=== PATIENT | female | born 1985 | race Caucasian/White ===

== ENCOUNTER 2024-08-27 17:04 | Observation (INO) | payer OTHER, SELFPAY ==
[2024-08-27] VITALS (10 sets, daily range): BP systolic 154–192; BP diastolic 89–109; PULSE 70–83; RESP 14–20; O2SAT 98–100
--- NOTE | ~2024-08-27 | CT_ITS ---
CT lumbar spine wo con Ordering provider: Marti Foster PA-C History: 38 years Female with . back pain, right-sided paresthesias . Comparison: None. Technique: CT lumbar spine without contrast. Automated exposure control and iterative reconstruction technique were employed. The dose-length product was 867.25 mGy-cm. FINDINGS: VERTEBRAE: Normal height and alignment. No subluxation or visible acute fracture. DISC SPACES: Well maintained. Bulge at the level of L4-L5. T12-L1: No stenosis. L1-L2: No stenosis. L2-L3: No stenosis. L3-L4: No stenosis. L4-L5: No stenosis. L5-S1: No stenosis. PARASPINOUS SOFT TISSUES: Normal aorta. IMPRESSION: No acute osseous abnormality. Reviewed, dictated and finalized at location A.
--- NOTE | ~2024-08-27 | CT_ITS ---
CT cervical spine wo con Ordering provider: Marti Foster PA-C History: . neck pain, right sided paresthesias . Comparison: None. Technique: CT of the cervical spine was performed without contrast. Sagittal and coronal reformatted images were also obtained and reviewed. Automated exposure control and iterative reconstruction nicholas hnique were employed. The dose-length product was 362.77 mGy-cm. FINDINGS: VERTEBRAE: No subluxation or acute fracture. The occipital condyles are intact. Degenerative changes of the spine. DISC SPACES: Narrowing of the disc C6-C7. Uncovertebral joint osteoarthritic changes at the same leve l. Bilateral narrowing of the foramina at the level of C4-C5, C5-C6 and C6-C7. PARASPINOUS SOFT TISSUES: Normal. IMPRESSION: No acute osseous abnormality cervical spine. Narrowing of the foramina at the level of C4-C5, C5-C6 and C6-C7. Clinical correlation advised and if clinically warranted MRI is advised. Reviewed, dictated and finalized at location A. IMPRESSION: No acute osseous abnormality cervical spine. Narrowing of the foramina at the level of C4-C5, C5-C6 and C6-C7. Clinical darryl elation advised and if clinically warranted MRI is advised.
--- NOTE | ~2024-08-27 | CT_ITS ---
CT ANGIOGRAM NECK AND HEAD History: Right-sided paresthesia. Technique: Serial spiral axial images through the head and neck were obtained during arterial phase I V injection of 100 cc of Omnipaque 350. 3-D postprocessing and MIP images were then reconstructed on the remote workstation. Dose reduction technique was used on this scan by utilizing automated exposur e control and iterative reconstruction technique. The dose-length product (DLP) was 963.95 mGy-cm. CTA neck findings: Bilateral vertebral arteries are patent. Bilateral common carotid, internal carot id, and external carotid arteries are patent. No large vessel occlusion or stenosis. No aneurysm. The proximal right internal carotid artery demonstrates 0% stenosis relative to the normal distal artery lumen diameter. The proximal left internal carotid artery demonstrates 0% stenosis relative to the n ormal distal artery lumen diameter. CTA head findings: Distal vertebral arteries, basilar artery, and posterior cerebral arteries are pat ent. Distal internal carotid arteries, middle cerebral arteries, and anterior cerebral arteries are p atent. No large vessel occlusion or stenosis. No aneurysm. Impression: Unremarkable exam. Reviewed, dictated and finalized at location M. Impression: Unremarkable exam.
--- NOTE | ~2024-08-27 | XR_ITS ---
XR chest 1V portable Ordering provider: Marti Foster PA-C History: 38 years Female with . hypertension . Comparison: January 23, 2005 FINDINGS: MEDIASTINUM: The cardiac silhouette is not enlarged. LUNGS: No infiltrates, effusions or pneumothorax. OTHER: No free air under the diaphragm. IMPRESSION: No acute cardiopulmonary pathology. Reviewed, dictated and finalized at location A.
--- NOTE | ~2024-08-27 | CT_ITS ---
CT brain wo con Ordering provider: Marti Foster PA-C History: 38 years Female with . Right-sided paresthesias . Comparison: None. Technique: CT of the head without contrast. Radiation reduction technique utilized.The dose-length pr oduct was 605.33 mGy-cm. FINDINGS: BRAIN PARENCHYMA AND CSF SPACES: No midline shift, mass effect or hemorrhage. The brain parenchyma a nd CSF spaces are otherwise normal. VISUALIZED PARANASAL SINUSES: Well aerated. MASTOIDS: Well aerated. BONES: The bones appear intact. SOFT TISSUES: Visualized nasopharynx is normal. Superficial soft tissues are normal. IMPRESSION: No acute intracranial findings. Reviewed, dictated and finalized at location A.
--- NOTE | ~2024-08-27 | MR_ITS ---
EXAMINATION: MR brain/brain stem wo/w con DATE: 08/28/2024 12:31 INDICATION: Right-sided numbness. Stroke symptoms. TECHNIQUE: Magnetic resonance imaging (MRI) of the brain and brainstem was performed without and with 17 mL ProHance intravenous contrast. Sequences included sagittal and axial T1-weighted SE, axial dif fusion-weighted FS SE, axial 3D SWAN, axial T2-weighted FLAIR, and axial T2-weighted FSE. Postcontras t axial and coronal T1-weighted SE was obtained. Apparent diffusion coefficient (ADC) maps were creat ed. COMPARISON: Head CT and cerebral CT angiogram dated 08/27/2024 FINDINGS: Small region of restricted diffusion with associated increased T2 signal consistent with acute infarc t in the left thalamus. No intracranial hemorrhage or abnormal intracranial mass lesion. There are no intraparenchymal signal abnormalities seen on the other pulse sequences. The ventricles are symmetri c and normal in size. There are no abnormal extra-axial fluid collections. Flow voids are seen in the cerebral arteries on the T2-weighted sequences consistent with their expected patency. Mild mucoperi osteal thickening the bilateral ethmoid sinuses. Visualized orbits and soft tissues are unremarkable. There are no areas of abnormal enhancement on the post contrast images. IMPRESSION: 1. Small acute infarct in the left thalamus. Otherwise unremarkable brain MRI. Reviewed, dictated and finalized at location A.
--- NOTE | 2024-08-27 17:28 | ECG_ITS ---
Test Date: 2024-08-27 19:55:22 Measurements Intervals [place] Rate: 71 P: 45 [place]: 172 QRS: 53 QRSD: 94 T: 35 QT: 404 QTc: 441 Interpretive Statements SINUS RHYTHM POSSIBLE LEFT ATRIAL ENLARGEMENT BORDERLINE ST ABNORMALITY- INF/LAT LEADS BASELINE WANDER- II, III, V1 BORDERLINE ECG No previous ECG available for comparison Electronically Signed On 08-28-2024 06:11:05 CDT by Harsha Swanson D.O.
--- NOTE | 2024-08-27 17:30 | ED_ITS ---
HPI - Neuro Symptoms/Deficit General Chief Complaint: Neuro Symptoms/Deficit <MINISTERIO Casas Last Filed: 08/28/24 01:36> Stated Complaint: rided sided tingling <MINISTERIO Casas Last Filed: 08/28/24 01:36> Time Seen by Provider: 08/27/24 17:11 <MINISTERIO Casas Last Filed: 08/28/24 01:36> Source: patient <MINISTERIO Casas Last Filed: 08/28/24 01:36> Mode of arrival: ambulatory <MINISTERIO Casas Last Filed: 08/28/24 01:36> Limitations: no limitations <MINISTERIO Casas Last Filed: 08/28/24 01:36> History of Present Illness HPI Narrative: This is a 38-year-old female that presents to the emergency department for right-sided paresthesias. Reports around 9:00 p.m. last night she started to note tingling in her right arm, leg, face. Reports this when on intermittently for couple of hours. She went to sleep. Since she woke up this morning knee paresthesias have been constant. Denies any other focal numbness or weakness. < MINISTERIO Casas Last Filed: 08/28/24 01:36> Related Data Home Medications: Home Medications ?Medication ?Instructions ?Recorded ?Confirmed ?Last Taken ?Type ibuprofen 600 mg tablet (IBU) 600 mg PO PRN pain 08/28/24 08/28/24 Unknown History <MINISTERIO Casas Last Filed: 08/28/24 01:36> Allergies/Adverse Reactions: Allergies Allergy/AdvReac Type Severity Reaction Status Date / Time prochlorperazine Allergy Severe Anaphylactic Verified 10/26/10 17:58 Shock <MINISTERIO Casas Last Filed: 08/28/24 01:36> Review of Systems 2 Review of Systems: CONSTITUTIONAL: Denies fever EYES: Denies visual changes CARDIOVASCULAR: Denies chest pain, or edema. RESPIRATORY: Denies dyspnea. SKIN: Denies rash MUSCULOSKELETAL: Reports back pain, and myalgia. NEUROLOGIC: Denies weakness. <Marti Foster PA-C - Last Filed: 08/28/24 01:36> All systems reviewed & are unremarkable except as noted in HPI and below < Marti Foster PA-C - Last Filed: 08/28/24 01:36> PMFSH Past Medical History Medical History: Medical History (Updated 08/28/24 @ 01:31 by Marti Foster PA-C) No active medical problems <Marti Foster PA-C - Last Filed: 08/28/24 01:36> Family History Family History: Family History (Updated 08/28/24 @ 04:12 by Una Cladwell RN) Father Hypertension Grandparent Diabetes mellitus Mother Restless leg syndrome <Marti Foster PA-C - Last Filed: 08/28/24 01:36> Social History Social History: Social History (Updated 08/27/24 @ 17:32 by Marti Foster PA-C) Smoking status: Never smoker Alcohol intake: current Drinks per week: 1 Substance use: never Do You Feel Safe in your Home?: Yes Lack of Transportation: No Lack of Food: Never True Current Housing: I Have Housing Concerned About Future Housing: No Difficulty Paying Gas/Electric Bills: No Difficulty Paying for Meds: No Currently Unemployed: YES Education: High School Diploma/GED Difficulty w/ Childcare or Family Care: No Spiritual care concerns: No <Marti Foster PA-C - Last Filed: 08/28/24 01:36> Exam 2 Narrative: GENERAL: Well-appearing, well-nourished, and in no acute distress. HEAD: Normocephalic, atraumatic. EYES: PERRLA and EOMI. ENT: Nares clear, no rhinorrhea or epistaxis. Mucous membranes moist. Oropharynx without tonsillar hypertrophy exudate or other lesions. Bilateral TMs pearly murray non-bulging NECK: Supple. No adenopathy or masses. CHEST: Clear to auscultation. No respiratory distress. No wheezes rales or rhonchi HEART: Regular rate and rhythm. No murmur heard. Normal peripheral pulses. EXTREMITIES: Normal range of motion. No edema. Strength equal in bilateral upper and lower extremities (5/5) SKIN: Warm, dry, no rash. NEURO: No focal deficits. Alert and oriented x3. Cranial nerves 2-12 grossly intact. Normal [id number] PSYCH: Normal mood and affect <Marti Foster PA-C - Last Filed: 08/28/24 01:36> Course Course Emergency Course: Patient updated on her workup and recommendation for admission <Marti Foster PA-C - Last Filed: 08/28/24 01:36> DENTAL OFFICE COORDINATOR/PA Physician Supervision This visit was performed by both a physician and an APC. I performed all aspects of the MDM as documented. <Jaswinder Ospina MD - Last Filed: 08/28/24 04:54> Consultations Consultation #1: Spoke with hospitalist about patient and workup who accepts admission < Marti Foster PA-C - Last Filed: 08/28/24 01:36> Date: 08/28/24 <Marti Foster PA-C - Last Filed: 08/28/24 01:36> Consultation #2: Spoke with Dr. García. Recommends CTA brain carotid, if that does not show any acute findings. Admission and MR brain <Marti Foster PA-C - Last Filed: 08/28/24 01:36> Date: 08/27/24 <Marti Foster PA-C - Last Filed: 08/28/24 01:36> Vital Signs Vital signs: Vital Signs Pulse Rate 81 08/27/24 17:19 Respiratory Rate 18 08/27/24 17:19 Blood Pressure 192/103 H 08/27/24 17:19 Pulse Oximetry 100 08/27/24 17:19 Oxygen Delivery Room Air 08/27/24 17:19 Temperature 36.6 C 08/28/24 02:51 Pulse Rate 86 08/28/24 04:18 Respiratory Rate 16 08/28/24 02:51 Blood Pressure 173/96 H 08/28/24 02:51 Pulse Oximetry 98 08/28/24 02:51 Oxygen Delivery Room Air 08/28/24 04:21 <MINISTERIO Casas Last Filed: 08/28/24 01:36> Vital Signs Pulse Rate 81 08/27/24 17:19 Respiratory Rate 18 08/27/24 17:19 Blood Pressure 192/103 H 08/27/24 17:19 Pulse Oximetry 100 08/27/24 17:19 Oxygen Delivery Room Air 08/27/24 17:19 Temperature 36.6 C 08/28/24 02:51 Pulse Rate 86 08/28/24 04:18 Respiratory Rate 16 08/28/24 02:51 Blood Pressure 173/96 H 08/28/24 02:51 Pulse Oximetry 98 08/28/24 02:51 Oxygen Delivery Room Air 08/28/24 04:21 <Jaswinder Ospina MD - Last Filed: 08/28/24 04:54> MDM - Neuro Symptoms/Deficit MDM Narrative Medical decision making narrative: Patient presents the emergency department for right-sided paresthesias. Ongoing since last night. She is not have any focal deficits noted on exam. Reporting tingling/paresthesias in the right arm, leg, right side of her face. Patient hypertensive upon arrival, does not have known history of hypertension. Blood pressure is elevated to the 190 systolic. Given a dose of labetalol with improvement. CBC without concerning findings. Metabolic panel with elevated blood glucose. Hemoglobin A1c would make her a prediabetic. Chest x-ray without acute cardiopulmonary abnormality. CT brain without acute findings. CT cervical spine shows no acute osseous abnormality. Some foraminal narrowing. CT lumbar spine without acute findings. Spoke with Dr. Garcaí. Recommends CTA brain carotid, if that does not show any acute findings. Admission and MR brain. Spoke with hospitalist about patient and workup who accepts admission < Marti Foster PA-C - Last Filed: 08/28/24 01:36> Differential Diagnosis Differential diagnosis: Likely subarachnoid hemorrhage, peripheral neuropathy, cerebrovascular accident, multiple sclerosis and other (Radiculopathy, hypertensive urgency) < Marti Foster PA-C - Last Filed: 08/28/24 01:36> Lab Data Attestation: I reviewed the patient's lab results. <Marti Foster PA-C - Last Filed: 08/28/24 01:36> Result diagrams: 08/27/24 17:38 08/27/24 17:38 <Marti Foster PA-C - Last Filed: 08/28/24 01:36> Labs: Lab Results 08/27/24 08/27/24 Range/Units 17:38 20:08 WBC 10.1 H (4.5-10.0) K/mm3 RBC 4.88 (4.2-5.4) M/mm3 Hgb 12.4 (12.0-15.0) g/dL Hct 40.0 (37.0-47.0) % MCV 82.0 (80-100) fl MCH 25.4 L (26-34) pg MCHC 31.0 L (32-36) g/dl RDW 14.6 H (11.5-14.5) % Plt Count 375 (150-375) k/mm3 MPV 9.1 (7.4-10.4) fl Immature Gran % (Auto) 1.2 H (0-0.5) % Neut % (Auto) 68.7 (45.5-73.1) % Lymph % (Auto) 19.5 (18.3-44.2) % Brown % (Auto) 4.8 (2.6-8.5) % Eos % (Auto) 4.6 H (0-4.4) % Baso % (Auto) 1.2 (0.2-1.2) % Lymph # (Auto) 1.98 (0.9-3.2) K/mm3 Brown # (Auto) 0.5 (0.1-0.6) K/mm3 Eos # (Auto) 0.5 H (0-0.3) K/mm3 Baso # (Auto) 0.1 (0.0-0.1) K/mm3 Abs Immat Gran (auto) 0.12 H (0.00-0.031) K/mm3 Absolute Neuts (auto) 7.0 H (1.3-6.7) K/mm3 Absolute Nucleated RBC 0.000 (0.0-0.012) K/mm3 Nucleated RBC % 0.0 (0.0-0.2) % PT 13.0 (11.1-14.7) Seconds INR 1.0 APTT 25.3 (22.3-36.8) Seconds Sodium 137 (137-145) mmol/L Potassium 3.5 (3.4-5.0) mmol/L Chloride 103 (98-107) mmol/L Carbon Dioxide 26 (22-30) mmol/L Anion Gap 8 (4-12) mmol/L BUN 5 L (7-17) mg/dL Creatinine 0.70 (0.7-1.0) mg/dL Estim Creat Clear Calc 97 ml/min Estimated GFR > 60 (59 - ) Glucose 175 H (65-110) mg/dL Hemoglobin A1c 6.3 H (<5.7) % Calcium 8.9 (8.4-10.2) mg/dL Magnesium 2.0 (1.6-2.3) mg/dL Total Bilirubin 0.4 (0.2-1.3) mg/dL AST 44 H (14-36) U/L ALT 28 (6-35) U/L Alkaline Phosphatase 68 (38-126) U/L Troponin I < 0.012 (0.000-0.034) ng/mL Total Protein 7.4 (6.3-8.2) g/dL Albumin 4.3 (3.5-5.1) g/dL Vitamin B12 265.0 (239-931) pg/mL Folate 9.7 (2.76->20) ng/mL POC Urine HCG, Qual Negative (Negative) <Marti Foster PA-C - Last Filed: 08/28/24 01:36> Lab Results 08/27/24 08/27/24 Range/Units 17:38 20:08 WBC 10.1 H (4.5-10.0) K/mm3 RBC 4.88 (4.2-5.4) M/mm3 Hgb 12.4 (12.0-15.0) g/dL Hct 40.0 (37.0-47.0) % MCV 82.0 (80-100) fl MCH 25.4 L (26-34) pg MCHC 31.0 L (32-36) g/dl RDW 14.6 H (11.5-14.5) % Plt Count 375 (150-375) k/mm3 MPV 9.1 (7.4-10.4) fl Immature Gran % (Auto) 1.2 H (0-0.5) % Neut % (Auto) 68.7 (45.5-73.1) % Lymph % (Auto) 19.5 (18.3-44.2) % Brown % (Auto) 4.8 (2.6-8.5) % Eos % (Auto) 4.6 H (0-4.4) % Baso % (Auto) 1.2 (0.2-1.2) % Lymph # (Auto) 1.98 (0.9-3.2) K/mm3 Brown # (Auto) 0.5 (0.1-0.6) K/mm3 Eos # (Auto) 0.5 H (0-0.3) K/mm3 Baso # (Auto) 0.1 (0.0-0.1) K/mm3 Abs Immat Gran (auto) 0.12 H (0.00-0.031) K/mm3 Absolute Neuts (auto) 7.0 H (1.3-6.7) K/mm3 Absolute Nucleated RBC 0.000 (0.0-0.012) K/mm3 Nucleated RBC % 0.0 (0.0-0.2) % PT 13.0 (11.1-14.7) Seconds INR 1.0 APTT 25.3 (22.3-36.8) Seconds Sodium 137 (137-145) mmol/L Potassium 3.5 (3.4-5.0) mmol/L Chloride 103 (98-107) mmol/L Carbon Dioxide 26 (22-30) mmol/L Anion Gap 8 (4-12) mmol/L BUN 5 L (7-17) mg/dL Creatinine 0.70 (0.7-1.0) mg/dL Estim Creat Clear Calc 97 ml/min Estimated GFR > 60 (59 - ) Glucose 175 H (65-110) mg/dL Hemoglobin A1c 6.3 H (<5.7) % Calcium 8.9 (8.4-10.2) mg/dL Magnesium 2.0 (1.6-2.3) mg/dL Total Bilirubin 0.4 (0.2-1.3) mg/dL AST 44 H (14-36) U/L ALT 28 (6-35) U/L Alkaline Phosphatase 68 (38-126) U/L Troponin I < 0.012 (0.000-0.034) ng/mL Total Protein 7.4 (6.3-8.2) g/dL Albumin 4.3 (3.5-5.1) g/dL Vitamin B12 265.0 (239-931) pg/mL Folate 9.7 (2.76->20) ng/mL POC Urine HCG, Qual Negative (Negative) <Jaswinder Ospina MD - Last Filed: 08/28/24 04:54> Imaging Data Radiologist's impression: ITS Impressions Chest X-Ray 08/27/24 18:20 IMPRESSION: No acute cardiopulmonary pathology. Head CT 08/27/24 20:22 IMPRESSION: No acute intracranial findings. Cervical Spine CT 08/27/24 22:40 IMPRESSION: No acute osseous abnormality cervical spine. Narrowing of the foramina at the level of C4-C5, C5-C6 and C6-C7. Clinical correlation advised and if clinically warranted MRI is advised. Lumbar Spine CT 08/27/24 22:54 IMPRESSION: No acute osseous abnormality. CTA brain and carotid: No acute finding. Unremarkable arteries. No large vessel occlusion <Marti Foster PA-C - Last Filed: 08/28/24 01:36> ECG Data EKG #1: ECG completion date: 08/27/24 <Marti Foster PA-C - Last Filed: 08/28/24 01:36> EKG Interpretation: normal rate, sinus rhythm, no ST changes and normal QT <MINISTERIO Casas Last Filed: 08/28/24 01:36> Critical Care Time Critical Care Time Critical Care Time: Yes <Marti Foster PA-C - Last Filed: 08/28/24 01:36> Total Critical Care Time: 35 <MINISTERIO Casas Last Filed: 08/28/24 01:36> Discharge Plan Discharge Clinical Impression: Hypertensive urgency, Paresthesia <MINISTERIO Casas Last Filed: 08/28/24 01:36> Patient Disposition: Still a Patient <MINISTERIO Casas Last Filed: 08/28/24 01:36> Condition: Serious <MINISTERIO Casas Last Filed: 08/28/24 01:36>
[2024-08-27 17:45] LABS: Basophils Absolute Auto 0.1 K/mm3 (0.0-0.1); Basophils Percent Auto 1.2 % (0.2-1.2); Eosinophils Absolute Auto 0.5 K/mm3 (0-0.3); Eosinophils Percent Auto 4.6 % (0-4.4); Hemoglobin 12.4 g/dL (12.0-15.0); Immature Granulocyte Absolute 0.12 K/mm3 (0.00-0.031); Immature Granulocyte Percent A 1.2 % (0-0.5); Lymphocytes Absolute Auto 1.98 K/mm3 (0.9-3.2); Lymphocytes Percent Auto 19.5 % (18.3-44.2); Mean Corpuscular Hemoglobin 25.4 pg (26-34); Mean Platelet Volume 9.1 fl (7.4-10.4); Monocytes Absolute Auto 0.5 K/mm3 (0.1-0.6); Monocytes Percent Auto 4.8 % (2.6-8.5); Neutrophils Percent Auto 68.7 % (45.5-73.1); Platelet Count Result 375 k/mm3 (150-375); Red Blood Count 4.88 M/mm3 (4.2-5.4); Red Cell Distribution Width 14.6 % (11.5-14.5); White Blood Count 10.1 K/mm3 (4.5-10.0)
[2024-08-27 18:00] LABS: Partial Thromboplastin Time 25.3 Seconds (22.3-36.8)
[2024-08-27 18:22] LABS: Alanine Aminotransferase 28 U/L (6-35); Albumin Level 4.3 g/dL (3.5-5.1); Alkaline Phosphatase 68 U/L (38-126); Anion Gap 8 mmol/L (4-12); Aspartate Amino Transferase 44 U/L (14-36); Bilirubin,Total 0.4 mg/dL (0.2-1.3); Blood Urea Nitrogen 5 mg/dL (7-17); Calcium 8.9 mg/dL (8.4-10.2); Carbon Dioxide 26 mmol/L (22-30); Chloride 103 mmol/L (98-107); Estimated CRCL calculation 97 ml/min; Estimated Glomerular Filt Rate > 60; Glucose 175 mg/dL (65-110); Potassium 3.5 mmol/L (3.4-5.0); Sodium 137 mmol/L (137-145); Total Protein 7.4 g/dL (6.3-8.2); Troponin I < 0.012 ng/mL (0.000-0.034)
[2024-08-27] MEDS: LABETALOL HCL INJ 100 MG/20 ML VIAL 10 MG IV PUSH (18:36)
--- NOTE | 2024-08-27 18:49 | PC.NURSE ---
called lab to add on Hgb A1C.
[2024-08-27 20:10] LABS: BEDSIDEPREGUCG Negative (Negative)
--- NOTE | 2024-08-27 21:34 | PC.NURSE ---
Patient reporting that all numbness has subsided-still alittle tingling in toes
[2024-08-27 22:09] LABS: Hemoglobin A1C 6.3 % (<5.7)
[2024-08-27] MEDS: ACETAMINOPHEN 500 MG TABLET 1000 MG PO (23:22)
[2024-08-28] VITALS (12 sets, daily range): BP systolic 148–173; BP diastolic 89–108; PULSE 73–94; RESP 15–22; TEMP 36.6–37; O2SAT 97–100; BMI 31.4
--- NOTE | 2024-08-28 | ECHO_ITS ---
Patient Info Name: Rosalia Rondon Age: 38 years : 1985 Gender: Female Ht: 64 in Wt: 181 lbs BSA: 1.95 m2 HR: 75 bpm BP: 173 / 96 mmHg Technical Quality: Good Exam Date: 08/28/2024 10:16 AM Patient Status: I Admit Date: 08/28/2024 Exam Type: CA echo doppler w bubble study Complete two-dimensional, color flow and Doppler transthoracic echocardiogram is performed with agitated saline. Staff Referring Physician: [facility] Insurance Representative: Jen Caldewll Attending Provider: Blair Sims MD Contrast/Agitated Saline Contrast/Ag. Saline: Agitated Saline Amount: 12.00 ml Existing IV Access: Yes IV Access Condition: patent with no signs of infiltration Summary 1. Left ventricular chamber dimension is normal. 2. Left ventricular systolic function is normal, estimated at 65-70. 3. There is mild concentric increased left ventricular wall thickness. 4. The left ventricular diastolic function is grade I diastolic dysfunction. 5. E/e' 8 is minimally elevated. 6. There is trace tricuspid valve regurgitation. 7. No pulmonary hypertension, estimated pulmonary arterial systolic pressure is 21 mmHg. Left Ventricle E/e' 8 is minimally elevated. Left ventricular chamber dimension is normal. Left ventricular systolic function is normal, estimated at 65-70. There is mild concentric increased left ventricular wall thickness. The left ventricular diastolic function is grade I diastolic dysfunction. Right Ventricle Right ventricular chamber dimension is normal. Right ventricular systolic function is normal and with normal TAPSE 2.5 cm. Left Atria Left atrial chamber dimension is normal. Right Atria Right atrial chamber dimension is normal. Atrial Septum Intact interatrial septum visualized by 2D and agitated saline imaging. Agitated saline injection with and without valsalva maneuver opacified right side cardiac chambers without shunt to left side cardiac chambers. Aortic Valve The aortic valve is trileaflet. There is no aortic valve stenosis. There is no aortic valve regurgitation. Pulmonic Valve There is no pulmonic regurgitation. Mitral Valve There is no mitral valve stenosis. There is no mitral valve regurgitation. Tricuspid Valve There is trace tricuspid valve regurgitation. No pulmonary hypertension, estimated pulmonary arterial systolic pressure is 21 mmHg. Pericardium/Pleural There is no pericardial effusion. Inferior Vena Cava Normal inferior vena cava with >50% collapse upon inspiration consistent with normal right atrial pressure, 5 mmHg. Aorta The aortic root size at the sinus of Valsalva is normal. Left Ventricular Outflow Tract Name Value Normal LVOT 2D LVOT Diameter 1.9 cm LVOT Doppler LVOT Peak Velocity 98 cm/s LVOT Peak Gradient 4 mmHg LVOT Mean Gradient 3 mmHg LVOT VTI 23 cm LVOT VTI/AV VTI Ratio 0.8 LVOT Stroke Volume 66 ml LVOT CO 13.8 l/min LVOT CI 7.1 l/min/m2 Pulmonic Valve Name Value Normal PV Doppler PV Peak Velocity 101 cm/s PV Peak Gradient 4 mmHg Mitral Valve Name Value Normal MV Diastolic Function MV E Peak Velocity 67 cm/s MV A Peak Velocity 79 cm/s MV E/A 0.8 MV Decel Time (PW) 227 ms MV Annular TDI MV E/e' (Septal) 10.3 MV E/e' (Lateral) 7.9 MV E/e' (Average) 9.1 Tricuspid Valve Name Value Normal TV Regurgitation Doppler TR Peak Velocity 198 cm/s TR Peak Gradient 16 mmHg Estimated PAP/RSVP RA Pressure 5 mmHg <=5 PA Systolic Pressure 21 mmHg <36 RV Systolic Pressure 21 mmHg <36 TV Annular TDI TV Lateral Daly s' Velocity 15.5 cm/s >=9.5 Aorta Name Value Normal Ascending Aorta Ao Root Diameter (MM) 3.2 cm Ao Root Diam Index (MM) 1.7 cm/m2 Aortic Valve Name Value Normal AV Doppler AV Peak Velocity 154 cm/s AV Peak Gradient 10 mmHg AV Mean Gradient 5 mmHg AV VTI 30 cm AV Area (Cont Eq VTI) 2.2 cm2 >=3.0 AV Area (Cont Eq Magdaleno) 1.9 cm2 AV DI (Magdaleno) 0.64 AV Regurgitation 2D LVOT Area 2.9 cm2 Ventricles Name Value Normal LV Dimensions 2D/MM IVS Diastolic Thickness (2D) 1.2 cm 0.6-1.0 LVID Diastole (2D) 4.7 cm 3.8-5.2 LVIW Diastolic Thickness (2D) 1.2 cm 0.6-0.9 LVID Systole (2D) 3.0 cm 2.2-3.5 LVOT Diameter 1.9 cm LV Mass (2D Cubed) 213.23 g 67.00-162.00 LV Mass Index (2D Cubed) 109 g/m2 43-95 Relative Wall Thickness (2D) 0.50 <=0.42 LV Fractional Shortening/Ejection Fraction 2D/MM LV Fractional Shortening (2D) 36 % 27-45 LV EF (2D Teichholz) 65 % LV Diastolic Volume (4C MOD) 111 ml LV EF (4C MOD) 72 % LV Diastolic Volume (2C MOD) 84 ml LV EF (2C MOD) 59 % LV Diastolic Volume (BP MOD) 99 ml 46-106 LV Diastolic Volume Index (BP MOD) 51 ml/m2 29-61 LV Systolic Volume (BP MOD) 34 ml 14-42 LV Systolic Volume Index (BP MOD) 17 ml/m2 8-24 LV EF (BP MOD) 66 % 54-74 LV Diastolic Length (4C) 8.2 cm LV Systolic Length (4C) 6.6 cm LV Stroke Volume (4C MOD) 80 ml RV Dimensions 2D/MM RVID Diastole (2D) 3.2 cm 2.1-3.5 Atria Name Value Normal LA Dimensions LA Dimension (MM) 0.0 cm 2.7-3.8 LA Volume (4C A-L) 38 ml LA Volume (BP A-L) 41 ml RA Dimensions RA Systolic Major [place] Length (4C) 4.3 cm 2.2-2.8 RA Area (4C) 11.0 cm2 <=18.0 Report Signatures
[2024-08-28] MEDS: hydrALAZINE HCL 20 MG/ML VIAL 10 MG IV PUSH (01:44)
[2024-08-28 01:45] LABS: Folic Acid 9.7 ng/mL (2.76->20)
--- NOTE | 2024-08-28 02:25 | ADMGEN ---
This patient, Rosalia Rondon, was admitted to Medical Room 345-. Patient/family oriented to hospital policies and general routines including ID bracelet, bed and alarms, visiting hours, pain management, procedures, bathroom and other care routines, personal items, smoking policy, room service/diet, and visiting hours. Information on how to activate the Rapid Response Team has been discussed. Patient/Family are encouraged to report perceived risks to care and to ask questions if they do not understand what they are told or what they should do.
[2024-08-28] MEDS: CYANOCOBALAMIN INJ 1,000 MCG/ML VIAL 1000 MCG IM (03:30)
[2024-08-28 06:22] LABS: Basophils Absolute Auto 0.1 K/mm3 (0.0-0.1); Basophils Percent Auto 0.9 % (0.2-1.2); Eosinophils Absolute Auto 0.5 K/mm3 (0-0.3); Eosinophils Percent Auto 4.2 % (0-4.4); Hematocrit 37.7 % (37.0-47.0); Hemoglobin 11.8 g/dL (12.0-15.0); Immature Granulocyte Absolute 0.11 K/mm3 (0.00-0.031); Immature Granulocyte Percent A 0.9 % (0-0.5); Lymphocytes Absolute Auto 2.99 K/mm3 (0.9-3.2); Lymphocytes Percent Auto 24.8 % (18.3-44.2); Mean Corpuscular HGB Conc 31.3 g/dl (32-36); Mean Corpuscular Hemoglobin 25.8 pg (26-34); Mean Corpuscular Volume 82.5 fl (80-100); Mean Platelet Volume 9.7 fl (7.4-10.4); Monocytes Absolute Auto 0.7 K/mm3 (0.1-0.6); Monocytes Percent Auto 5.5 % (2.6-8.5); Neutrophils Absolute Auto 7.7 K/mm3 (1.3-6.7); Neutrophils Percent Auto 63.7 % (45.5-73.1); Platelet Count Result 384 k/mm3 (150-375); Red Blood Count 4.57 M/mm3 (4.2-5.4); Red Cell Distribution Width 14.6 % (11.5-14.5); White Blood Count 12.1 K/mm3 (4.5-10.0)
[2024-08-28 06:38] LABS: Alanine Aminotransferase 26 U/L (6-35); Alkaline Phosphatase 71 U/L (38-126); Anion Gap 9 mmol/L (4-12); Aspartate Amino Transferase 38 U/L (14-36); Bilirubin,Total 0.3 mg/dL (0.2-1.3); Blood Urea Nitrogen 7 mg/dL (7-17); Calcium 8.8 mg/dL (8.4-10.2); Carbon Dioxide 26 mmol/L (22-30); Chloride 103 mmol/L (98-107); Estimated CRCL calculation 90 ml/min; Estimated Glomerular Filt Rate > 60; Glucose 135 mg/dL (65-110); Magnesium 1.9 mg/dL (1.6-2.3); Potassium 3.3 mmol/L (3.4-5.0); Sodium 138 mmol/L (137-145); Total Protein 6.8 g/dL (6.3-8.2)
[2024-08-28 07:11] LABS: Cholesterol 195 mg/dL (0-200); HDL Direct 26 mg/dL; Triglycerides 337 mg/dL (<150)
[2024-08-28 07:21] LABS: LDL Cholesterol Direct 107 mg/dL
--- NOTE | 2024-08-28 08:07 | P.HP_ITS ---
H&P: HPI History of Present Illness Date/Time: 08/28/24 08:07 Chief Complaint: Numbness/tingling Narrative: Rosalia Rondon is a 38-year-old female who presents to the hospital with right- sided paresthesias for the past several weeks, worse over the past 4 days. Patient endorses intermittent episodes of transient right leg, arm, and face numbness/tingling for the past approximately 2 months stating that these e pisodes usually last around 1-5 seconds and go away on their own.She reports that on Saturday night she started experiencing episodes similar to before although this episode lasted for several hours and did not involve her face. She also reports that on Kamara, numbness/tingling numbness and on throughout the day and also involved her face. Denies any dizziness, nausea/vomiting, chest pain, shortness of breath, abdominal pain, urinary/bowel changes. Denies any recent illnesses, hospitalizations or recent travel. Denies smoking history but does drink alcohol. Family history of hypertension and diabetes, but does not take any medications at this time. In ED: 81 HR, 18RR, 192/103, 100% RA WBC 10.1, hemoglobin 12.4, hematocrit 40. Sodium 137, potassium 3.5, BUN 5, creatinine 0.7. Glucose 125, LFTs within normal limits Troponin negative Chest x-ray: No acute cardiopulmonary pathology Head CT: No acute intracranial findings Cervical spine CT: No acute osseous abnormality, narrowing of the foramina at level C4-C5, C5-C6, and C6-C7 Lumbar spine CT: No acute osseous abnormality CT brain and carotid: No acute finding, unremarkable arteries, no large vessel occlusion Review of Systems Review of Systems: All systems reviewed & are unremarkable except as noted in HPI and below [facility] Past Medical History Medical History (Updated 08/28/24 @ 13:05 by Don Brooks PA-C) No active medical problems Family History Family History (Updated 08/28/24 @ 04:12 by Una Caldwell RN) Father Hypertension Grandparent Diabetes mellitus Mother Restless leg syndrome Social History Social History (Updated 08/27/24 @ 17:32 by Marti Foster PA-C) Smoking status: Never smoker Alcohol intake: current Drinks per week: 1 Substance use: never Do You Feel Safe in your Home?: Yes Lack of Transportation: No Lack of Food: Never True Current Housing: I Have Housing Concerned About Future Housing: No Difficulty Paying Gas/Electric Bills: No Difficulty Paying for Meds: No Currently Unemployed: YES Education: High School Diploma/GED Difficulty w/ Childcare or Family Care: No Spiritual care concerns: No Meds Home Medications and Allergies Home Medications ?Medication ?Instructions ?Recorded ?Confirmed ?Type ibuprofen 600 mg tablet (IBU) 600 mg PO PRN pain 08/28/24 08/28/24 History Allergies Allergy/AdvReac Type Severity Reaction Status Date / Time prochlorperazine Allergy Severe Anaphylactic Verified 10/26/10 17:58 Shock Vital Signs Vital Signs - 24 hr 08/27/24 17:19 08/27/24 18:36 08/27/24 19:00 Temperature Pulse Rate 81 79 79 Respiratory Rate 18 14 17 Blood Pressure 192/103 H 163/97 H 154/101 H Pulse Oximetry 100 99 98 Oxygen Delivery Room Air 08/27/24 19:30 08/27/24 20:30 08/27/24 21:00 Temperature Pulse Rate 70 74 78 Respiratory Rate 19 18 18 Blood Pressure 182/103 H 158/98 H 167/89 H Pulse Oximetry 100 98 99 Oxygen Delivery 08/27/24 21:30 08/27/24 22:00 08/27/24 23:42 Temperature Pulse Rate 83 79 83 Respiratory Rate 20 15 16 Blood Pressure 159/109 H 168/102 H Pulse Oximetry 100 99 100 Oxygen Delivery 08/27/24 23:54 08/28/24 00:15 08/28/24 00:42 Temperature Pulse Rate 80 85 86 Respiratory Rate 20 16 21 H Blood Pressure Pulse Oximetry 100 100 99 Oxygen Delivery 08/28/24 00:45 08/28/24 01:27 08/28/24 01:58 Temperature 98.6 F Pulse Rate 76 94 Respiratory Rate 22 H 15 Blood Pressure 170/108 H 160/95 H Pulse Oximetry 98 98 Oxygen Delivery 08/28/24 02:51 08/28/24 04:18 08/28/24 04:21 Temperature 97.9 F Pulse Rate 82 86 Respiratory Rate 16 Blood Pressure 173/96 H Pulse Oximetry 98 Oxygen Delivery Room Air 08/28/24 06:00 Temperature 98.1 F Pulse Rate 73 Respiratory Rate 16 Blood Pressure 154/92 H Pulse Oximetry 98 Oxygen Delivery Exam Narrative: Gen - well appearing female in no acute respiratory distress who is nontoxic- appearing lying semi recumbent in bed HEENT - normocephalic. Atraumatic. Pupils equal round and reactive. Extraocular motions intact. Sclera clear and anicteric. Nares patent. Oropharynx was clear. No oral lesions. Moist mucous membranes. Tongue was midline. Palate randall symmetrically. No facial asymmetry. Neck - neck was supple. No dominant adenopathy, thyromegaly or masses. 2+ carotid upstrokes without bruits. Chest - lungs are clear to auscultation bilaterally. No wheezes or crackles. Breast exam was deferred. CV - heart was regular rate and rhythm. S1-S2. No murmurs gallops or rubs. Abd - abdomen was soft. Nontender. Nondistended. Positive bowel sounds. No organomegaly or masses. Ext - no clubbing, cyanosis or edema. 2+ DP pulses bilaterally. Neuro - patient is alert and oriented x4. Strength is 5/5 in both upper and lower extremities. Cranial nerves 2-12 are intact. Speech is clear. Psych - normal mood and affect. Patient is pleasant and cooperative. Skin - warm and dry. No rashes noted. H&P: Results Labs Labs: Short CBC 08/27/24 08/28/24 Range/Units 17:38 05:38 WBC 10.1 H 12.1 H (4.5-10.0) K/mm3 Hgb 12.4 11.8 L (12.0-15.0) g/dL Hct 40.0 37.7 (37.0-47.0) % Plt Count 375 384 H (150-375) k/mm3 BMP 08/27/24 08/28/24 17:38 05:38 Sodium 137 138 Potassium 3.5 3.3 L Chloride 103 103 Carbon Dioxide 26 26 BUN 5 L 7 Creatinine 0.70 0.76 Glucose 175 H 135 H Calcium 8.9 8.8 Cardiac Enzymes 08/27/24 Range/Units 17:38 Troponin I < 0.012 (0.000-0.034) ng/mL Liver Function 08/27/24 08/28/24 Range/Units 17:38 05:38 Total Bilirubin 0.4 0.3 (0.2-1.3) mg/dL AST 44 H 38 H (14-36) U/L ALT 28 26 (6-35) U/L Alkaline Phosphatase 68 71 (38-126) U/L Albumin 4.3 4.0 (3.5-5.1) g/dL Assessment and Plan Assessment and plan (1) CVA (cerebral vascular accident): Code(s): I63.9 - Cerebral infarction, unspecified Status: Acute Assessment and Plan: * Lipid panel: TG 337, cholesterol 195, LDL cholesterol 107, HDL 26 * Head CT: No acute intracranial findings * Head/neck CTA: No acute finding, unremarkable arteries, no large vessel occlusion * MRI: Small acute infarct in left thalamus * Echo: Ejection fraction 60-65%, G1DD * Start high-intensity statin - Atorvastatin 80mg * Plavix 75 mg daily and 81 mg aspirin daily * Initiate stroke protocol, NIH Stroke Scale, neuro's q.4 hours * Monitor CBC, CMP, magnesium, troponin, and lipid profile * Monitor blood pressure, allow for permissive hypertension. * Telemetry monitoring * Monitor blood glucose * PT/OT eval and treat * Neurology consulted, appreciate assistance and recommendations (2) Paresthesia: Code(s): R20.2 - Paresthesia of skin Status: Acute Assessment and Plan: * See above Plan DVT: SCDs Quality VTE Prophylaxis VTE prophylaxis: mechanical ordered
[2024-08-28] MEDS: CYANOCOBALAMIN 1,000 MCG TABLET 1000 MCG PO (08:34)
[2024-08-28] MEDS: KETOROLAC 15 MG/ML VIAL (*BKC) IV PUSH (08:34)
[2024-08-28 09:36] LABS: Free T4 Free Thyroxine Reflex 1.44 ng/dL (0.78-2.19)
[2024-08-28 13:03] LABS: Total Triiodothyronine (T3) 1.41 NG/ML (0.82-1.58)
[2024-08-29 04:00] VITALS: PULSE 75
[2024-08-29 05:37] LABS: Basophils Absolute Auto 0.1 K/mm3 (0.0-0.1); Eosinophils Absolute Auto 0.5 K/mm3 (0-0.3); Eosinophils Percent Auto 4.2 % (0-4.4); Hemoglobin 11.8 g/dL (12.0-15.0); Immature Granulocyte Absolute 0.09 K/mm3 (0.00-0.031); Immature Granulocyte Percent A 0.7 % (0-0.5); Lymphocytes Absolute Auto 2.95 K/mm3 (0.9-3.2); Lymphocytes Percent Auto 24.3 % (18.3-44.2); Mean Corpuscular HGB Conc 31.1 g/dl (32-36); Mean Corpuscular Hemoglobin 25.7 pg (26-34); Mean Corpuscular Volume 82.8 fl (80-100); Mean Platelet Volume 9.6 fl (7.4-10.4); Monocytes Absolute Auto 0.7 K/mm3 (0.1-0.6); Monocytes Percent Auto 5.5 % (2.6-8.5); Neutrophils Absolute Auto 7.8 K/mm3 (1.3-6.7); Neutrophils Percent Auto 64.3 % (45.5-73.1); Platelet Count Result 371 k/mm3 (150-375); Red Blood Count 4.59 M/mm3 (4.2-5.4); Red Cell Distribution Width 14.9 % (11.5-14.5); White Blood Count 12.2 K/mm3 (4.5-10.0)
[2024-08-29 05:51] VITALS: BP 190/110
[2024-08-29 05:57] LABS: Alanine Aminotransferase 25 U/L (6-35); Alkaline Phosphatase 56 U/L (38-126); Anion Gap 8 mmol/L (4-12); Aspartate Amino Transferase 38 U/L (14-36); Bilirubin,Total 0.4 mg/dL (0.2-1.3); Blood Urea Nitrogen 12 mg/dL (7-17); Calcium 9.1 mg/dL (8.4-10.2); Carbon Dioxide 27 mmol/L (22-30); Chloride 102 mmol/L (98-107); Estimated CRCL calculation 86 ml/min; Estimated Glomerular Filt Rate > 60; Glucose 132 mg/dL (65-110); Magnesium 1.9 mg/dL (1.6-2.3); Potassium 3.4 mmol/L (3.4-5.0); Sodium 137 mmol/L (137-145)
[2024-08-29 06:00] VITALS: PULSE 91; RESP 16; TEMP 37.1; O2SAT 98
[2024-08-29] MEDS: hydrALAZINE HCL 20 MG/ML VIAL 10 MG IV PUSH (06:00)
[2024-08-29 08:00] VITALS: PULSE 88; PULSE 90; RESP 16; O2SAT 98
[2024-08-29 08:35] VITALS: BP 169/100; PULSE 90
--- NOTE | 2024-08-29 10:01 | P.DS_ITS ---
DS: Admitting Diagnosis Discharge Date 08/29/2024 Admitting Diagnosis CVA DS: Discharge Diagnosis Discharge Diagnosis (1) CVA (cerebral vascular accident): Code(s): I63.9 - Cerebral infarction, unspecified Status: Acute (2) Paresthesia: Code(s): R20.2 - Paresthesia of skin Status: Acute DS: Summary Hospital Course Reason for hospitalization: Numbness/tingling Hospital Course: Rosalia Rondon is a 38-year-old female who presents to the hospital with right- sided paresthesias for the past several weeks, worse over the past 4 days. Patient endorses intermittent episodes of transient right leg, arm, and face numbness/tingling for the past approximately 2 months stating that these episodes usually last around 1-5 seconds and go away on their own.She reports that on Saturday night she started experiencing episodes similar to before although this episode lasted for several hours and did not involve her face. She also reports that on Kamara, numbness/tingling numbness and on throughout the day and also involved her face. Denies any dizziness, nausea/vomiting, chest pain, shortness of breath, abdominal pain, urinary/bowel changes. Denies any recent illnesses, hospitalizations or recent travel. Denies smoking history but does drink alcohol. Family history of hypertension and diabetes, but does not take any medications at this time. In ED: 81 HR, 18RR, 192/103, 100% RA WBC 10.1, hemoglobin 12.4, hematocrit 40. Sodium 137, potassium 3.5, BUN 5, creatinine 0.7. Glucose 125, LFTs within normal limits Troponin negative Chest x-ray: No acute cardiopulmonary pathology Head CT: No acute intracranial findings Cervical spine CT: No acute osseous abnormality, narrowing of the foramina at level C4-C5, C5-C6, and C6-C7 Lumbar spine CT: No acute osseous abnormality CT brain and carotid: No acute finding, unremarkable arteries, no large vessel occlusion Brain MRI was obtained which showed a small acute infarct to the left thalamus. Echocardiogram showed normal LV chamber dimension, LV systolic function estimated at 65-70%, mild concentric increased left ventricular wall thickness, grade 1 diastolic dysfunction, trace tricuspid valve regurgitation and no pulmonary hypertension. Discussed these findings with Neurology who recommended dual anti-platelet covered with Plavix and aspirin, as well as starting a statin. Patient is otherwise hemodynamically stable and has been ambulating without difficulty. Patient states that her numbness/tingling has otherwise all but resolved at this time. Patient has been found to be intermittently hypertensive and has received multiple doses of p.r.n. hydralazine with subsequent decrease in blood pressure. Neurovascularly intact with no neurological deficit. Patient is otherwise stable for discharge at this time, she will be discharged with prescription for 81 mg aspirin, 75 mg Plavix, 40 mg atorvastatin, and a new prescription of 2.5 mg amlodipine. She will be instructed to follow-up with her primary care physician regarding these medication changes, as well as Neurology regarding post CVA management in the outpatient setting. Patient is amenable to discharge at this time, in no longer requires hospitalization. Plan for discharge home. Status at Discharge Functional status at discharge: independent ambulation Overall status at discharge: patient is back to baseline Time Spent with Patient Time attestation: Total time spent providing and/or coordinating discharge services: 42 Exam Narrative: Gen - well appearing female in no acute respiratory distress who is nontoxic- appearing lying semi recumbent in bed HEENT - normocephalic. Atraumatic. Pupils equal round and reactive. Extraocular motions intact. Sclera clear and anicteric. Nares patent. Oropharynx was clear. No oral lesions. Moist mucous membranes. Tongue was midline. Palate randall symmetrically. No facial asymmetry. Neck - neck was supple. No dominant adenopathy, thyromegaly or masses. 2+ carotid upstrokes without bruits. Chest - lungs are clear to auscultation bilaterally. No wheezes or crackles. Breast exam was deferred. CV - heart was regular rate and rhythm. S1-S2. No murmurs gallops or rubs. Abd - abdomen was soft. Nontender. Nondistended. Positive bowel sounds. No organomegaly or masses. Ext - no clubbing, cyanosis or edema. 2+ DP pulses bilaterally. Neuro - patient is alert and oriented x4. Strength is 5/5 in both upper and lower extremities. Cranial nerves 2-12 are intact. Speech is clear. Psych - normal mood and affect. Patient is pleasant and cooperative. Skin - warm and dry. No rashes noted. DS: Data Data Completed and Pending Labs on day of discharge: Labs from last 24 hours 08/29/24 08/28/24 05:16 05:38 WBC 12.2 H RBC 4.59 Hgb 11.8 L Hct 38.0 MCV 82.8 MCH 25.7 L MCHC 31.1 L RDW 14.9 H Plt Count 371 MPV 9.6 Immature Gran % (Auto) 0.7 H Neut % (Auto) 64.3 Lymph % (Auto) 24.3 [place] % (Auto) 5.5 Eos % (Auto) 4.2 Baso % (Auto) 1.0 Lymph # (Auto) 2.95 [place] # (Auto) 0.7 H Eos # (Auto) 0.5 H Baso # (Auto) 0.1 Abs Immat Gran (auto) 0.09 H Absolute Neuts (auto) 7.8 H Absolute Nucleated RBC 0.000 Nucleated RBC % 0.0 Sodium 137 Potassium 3.4 Chloride 102 Carbon Dioxide 27 Anion Gap 8 BUN 12 D Creatinine 0.80 Estim Creat Clear Calc 86 Estimated GFR > 60 Glucose 132 H Calcium 9.1 Magnesium 1.9 Total Bilirubin 0.4 AST 38 H ALT 25 Alkaline Phosphatase 56 Total Protein 7.0 Albumin 4.0 Total T3 1.41 Imaging Radiologist's impression: MR brain/brain stem wo/w con Small acute infarct in the left thalamus. Otherwise unremarkable brain MRI. CA echo doppler w bubble study Summary 1. Left ventricular chamber dimension is normal. 2. Left ventricular systolic function is normal, estimated at 65-70. 3. There is mild concentric increased left ventricular wall thickness. 4. The left ventricular diastolic function is grade I diastolic dysfunction. 5. E/e' 8 is minimally elevated. 6. There is trace tricuspid valve regurgitation. 7. No pulmonary hypertension, estimated pulmonary arterial systolic pressure is 21 mmHg. Discharge Plan Discharge Attending physician on discharge: Blair Sims Consulting providers: Kenneth Moore; Sarahi García; Don Brooks Discharging Clinician: Don Brooks Anticipated Discharge Date/Time: 08/29/24 09:54 Patient Disposition: Home Activity: as tolerated Diet: as tolerated Discharge Instructions: Take all medications as prescribed even if feeling better You will be prescribed Plavix 75 mg to be taken daily, aspirin 81 mg to be taken daily, atorvastatin 40 mg to be taken daily, and amlodipine 2.5 mg taken daily Eat well balanced meals and stay hydrated Strict bleeding precautions since you are being started on Plavix including shaving with an electric razor, holding pressure for greater than 20 minutes for injury, protection of had with any falls, etc. Change positions slowly taking a break in between each position change If you should experience any chest pain, shortness of breath, temps >100.4 or any other worrisome symptoms please follow up with your PCP come back to the [facility] Follow up with your primary in 1 weeks Follow-up with neurology in 2-3 weeks It has been a pleasure taking care of you thank you for using our services Patient Instructions: Antibiotic Form, Aspirin (By mouth), Amlodipine (By mouth), Atorvastatin (By mouth), Clopidogrel (By mouth), Stroke (GEN), Blood Thinners (DC) Patient Language: Wolof Stand Alone Forms: General Discharge Information Follow-up/Referrals: Sarahi García MD [Physician] - PHYSICIAN,[employer] [Primary Care Provider] - Discharge Medications: New aspirin 81 mg tablet 81 mg PO DAILY Qty: 30 0RF clopidogrel [Plavix] 75 mg tablet 75 mg PO DAILY Qty: 30 0RF atorvastatin [Lipitor] 40 mg tablet 40 mg PO DAILY Qty: 30 0RF amlodipine 2.5 mg tablet 2.5 mg PO DAILY Qty: 30 0RF Discontinued ibuprofen [IBU] 600 mg tablet 600 mg PO PRN Date of admission: 08/28/24 01:34 Primary Care Provider: PHYSICIAN,[employer] Admitting Provider: Blair Sims Attending physician on admission: Blair Sims Condition: Stable Quality VTE Prophylaxis VTE prophylaxis: mechanical ordered
[2024-08-29] MEDS: ASPIRIN 81 MG ENTERIC TABLET PO (10:46)
[2024-08-29] MEDS: CYANOCOBALAMIN 1,000 MCG TABLET 1000 MCG PO (10:47)
[2024-08-29] MEDS: ATORVASTATIN 40 MG TABLET 80 MG PO (10:47)
[2024-08-29] MEDS: CLOPIDOGREL BISULFATE 75 MG TABLET PO (10:49)
== END 2024-08-29 11:25 | disposition home or self-care (01) ==
LOC: ANHED 08-28 01:27 → ANH3MED 08-28 02:12
PROVIDERS: Nurse Practitioner; Admitting Provider Family Medicine; Emergency Provider Physician Assistant; Visit Provider Family Medicine
DX: I63.9 Cerebral infarction, unspecified (principal); R20.2 Paresthesia of skin; R73.9 Hyperglycemia, unspecified
CPT/HCPCS: 36415; 70450; 70496; 70498; 70553; 71045; 72125; 72131; 80053; 80061; 81025; 82607; 82746; 83036; 83735; 84439; 84443; 84480; 84484; 85025; 85610; 85730; 93005; 93306; 96372; 96374; 96375; 97161; 99285; A9270; A9577; G0378; G0379; J0360; J1885; J3420; Q9967